=== PATIENT | male | born 1980 | race Caucasian/White ===

== ENCOUNTER 2024-07-12 21:00 | Emergency (ER) | payer OTHER ==
[~2024-07-12] VITALS: Ht 175.3 cm; Wt 88.5 kg
[2024-07-12] MEDS ORDERED: HYDR1TAB94 PO (21:33)
[2024-07-12] MEDS ORDERED: AMOCLA875 PO (21:33)
[2024-07-12] MEDS ORDERED: HYDROcodone 5-APAP 325 TAB PO ONE (21:35)
[2024-07-12] MEDS ORDERED: Amoxicillin/Clavulanate K 875 MG Tab PO ONE (21:35)
== END 2024-07-12 21:45 | disposition home or self-care (01) ==
LOC: ER 21:00
DX: K04.7 Periapical abscess without sinus (principal)
CPT/HCPCS: 99282; A9270